=== PATIENT | female | born 1960 | race Two or more races ===

== ENCOUNTER 2019-05-24 17:40 | Emergency (ER) | payer BC ==
--- NOTE | 2019-05-24 17:50 | ED ---
Complex/Multi-Sys Presentation - HPI Summary HPI Summary: This patient is a 59 year old female brought in by EMS presenting to [facility] with a chief complaint of flu-like symptoms since 3 hours ago. She reports nausea, vomiting, nasal congestion, dizziness, hand-cramping and chills. She denies fever, CP, difficulty breathing, diarrhea. She states it initially started as chills. She states she has not had much to eat today. She has no known Hx of cardiovascular disease. She states she was admitted a couple years ago for the hand-cramping and similar symptoms and they did not figure out what was wrong. - History Of Current Complaint Time Seen by Provider: 05/24/19 17:44 Hx Obtained From: Patient Onset/Duration: Lasting Days Associated Signs And Symptoms: Positive: Dizziness, Nausea, Vomiting. Negative : SOB, Diarrhea - Allergies/Home Medications Allergies/Adverse Reactions: Allergies Allergy/AdvReac Type Severity Reaction Status Date / Time No Known Allergies Allergy Verified 05/24/19 17:55 Home Medications: Home Medications Metoprolol Succinate XL TAB* [Toprol XL TAB*] 50 mg PO DAILY 05/24/19 [History Confirmed 05/24/19] hydroCHLOROthiazide [Hydrochlorothiazide] 12.5 mg PO DAILY 05/24/19 [History Confirmed 05/24/19] PMH/Surg Hx/FS Hx/Imm Hx Endocrine/Hematology History: Denies: Hx Diabetes, Hx Thyroid Disease Cardiovascular History: Denies: Hx Hypertension Respiratory History: Denies: Hx Asthma, Hx Chronic Obstructive Pulmonary Disease (COPD) GI History: Denies: Hx Ulcer - Surgical History Surgery Procedure, Year, and Place: CYST REMOVAL/BUTTOCKS - Immunization History Date of Tetanus Vaccine: Unknown Date of Influenza Vaccine: Unknown Infectious Disease History: Denies: Hx Clostridium Difficile, Hx Hepatitis, Hx Human Immunodeficiency Virus (HIV), Hx of Known/Suspected MRSA, Hx Shingles, Hx Tuberculosis - Family History Known Family History: Negative: Respiratory Disease - Social History Alcohol Use: None Substance Use Type: Reports: None Smoking Status (MU): Never Smoked Tobacco Review of Systems Positive: Chills. Negative: Fever Positive: Nasal Discharge Negative: Chest Pain Negative: Shortness Of Breath Positive: Vomiting, Nausea. Negative: Diarrhea Positive: Other - Hand-cramping Neurological: Other - Dizziness All Other Systems Reviewed And Are Negative: Yes Physical Exam - Summary Physical Exam Summary: Constitutional: Well-developed, Well-nourished, Alert. (-) Distressed Skin: Warm, Dry HENT: Normocephalic; Atraumatic. Nystagmus. Eyes: Conjunctiva normal Neck: Musculoskeletal ROM normal neck. (-) JVD, (-) Stridor, (-) Tracheal deviation Cardio: Rhythm regular, rate normal, Heart sounds normal; Intact distal pulses; Radial pulses are 2+ and symmetric. (-) Murmur Pulmonary/Chest wall: Effort normal. (-) Respiratory distress, (-) Wheezes, (-) Rales Abd: Soft, (-) tenderness, (-) Distension, (-) Guarding, (-) Rebound Musculoskeletal: (-) Edema. Bilateral carpal spasms. Lymph: (-) Cervical adenopathy Neuro: Alert, Oriented x3 Psych: Mood and affect Normal Triage Information Reviewed: Yes Vital Signs On Initial Exam: Temp Pulse Resp BP Pulse Ox 97.4 F 88 28 216/96 94 05/24/19 17:45 05/24/19 17:45 05/24/19 17:45 05/24/19 17:45 05/24/19 17:45 Vital Signs Reviewed: Yes Procedures - Sedation Patient Received Moderate/Deep Sedation with Procedure: No Diagnostics - Laboratory Result Diagrams: 05/24/19 17:48 05/24/19 17:48 Lab Statement: Any lab studies that have been ordered have been reviewed, and results considered in the medical decision making process. - EKG 1810 Cardiac Rate: NL - 87 BPM EKG Rhythm: Sinus Rhythm Summary of EKG Findings: No ischemic changes. Dr. Bonds has reviewed and interpreted this EKG. Complex Multi-Symp Course/Dx Course Of Treatment: This patient is a 59 year old female brought in by EMS presenting to [facility] with a chief complaint of flu-like symptoms. Physical exams reveals Bilateral carpal spasms. Labs reveal RBC 4.90 H, Sodium 133 L, Chlroide 93 L, Anion Gap 17 H, Glucose 193 H, Magnesium 1.8 L, Ur Specific [place] 1.006 L, Urine Ketones 1+A, Urine Glucose 1+ A. Plan for discharge was discussed with the patient and she was agreeable with this plan. - Diagnoses Provider Diagnoses: Dizziness, Hypertension, Hand or foot spasms Discharge ED - Sign-Out/Discharge Documenting (check all that apply): Patient Departure - Discharge - Discharge Plan Condition: Stable Disposition: HOME Patient Education Materials: Hypertension (ED) Referrals: Jonathan Werner MD [Primary Care Provider] - 2 Days Additional Instructions: Return to ED with new or worsening symptoms. Follow up with your PCP on Sunday. - Billing Disposition and Condition Condition: STABLE Disposition: Home - Attestation Statements Document Initiated by Scribe: Yes Documenting Scribe: Aden Alex Provider For Whom Belen is Documenting (Include Credential): Steve Bonds DO Scribracheal Attestation: Aden Barrett scribed for Steve Bonds DO on 05/24/19 at 2228. Scribe Documentation Reviewed: Yes Provider Attestation: The documentation as recorded by the Aden gilbert accurately reflects the service I personally performed and the decisions made by , Steve Bonds DO Status of Scribe Document: Viewed
[2019-05-24] MEDS ORDERED: NS 0.9% 1000 ML** 1,000 ML IV ONE (17:54)
[2019-05-24] MEDS ORDERED: Ondansetron INJ* 2 MG/ML VIAL IV ONE (17:54)
[2019-05-24 18:27] LABS: ABS Lymphocytes 3.1 10^3/ul (1.0-4.8); ABS Monocytes 0.5 10^3/ul (0-0.8); ABS Neutrophils 5.3 10^3/ul (1.5-7.7); Eosinophil % 0.5 %; Hematocrit 45 % (35-47); Hemoglobin 15.1 g/dL (12.0-16.0); Lymphocyte % 34.4 %; Mean Corpuscular HGB Conc 33 g/dL (31-36); Mean Corpuscular Hemoglobin 31 pg (27-31); Mean Corpuscular Volume 92 fL (80-97); Mean Platelet Volume 8.4 fL (7.4-10.4); Nucleated Red Blood Cells % 0.2; Platelet Count 337 10^3/uL (150-450); Red Cell Distribution Width 13 % (10-15)
[2019-05-24 18:48] LABS: Albumin 4.4 g/dL (3.2-5.2); Albumin/Globulin Ratio 1.3 (1-3); BUN/Creatinine Ratio 18.8 (8-20); Calcium 9.5 mg/dL (8.6-10.3); EGFR African American 104.7 (>60); EGFR Non-African American 86.5 (>60); Globulin 3.3 g/dL (2-4); Magnesium 1.8 mg/dL (1.9-2.7); Potassium 3.6 mmol/L (3.5-5.0); Total Bilirubin 0.5 mg/dL (0.2-1.0); Total Protein 7.7 g/dL (6.4-8.9)
[2019-05-24] MEDS ORDERED: Magnesium Sulfate 1 GM IV* 1 GM/100 ML BAG IV ONE (18:55)
[2019-05-24 19:17] LABS: Urine Appearance Clear; Urine Bilirubin Negative (Negative); Urine Blood Negative (Negative); Urine Color Colorless; Urine Glucose 1+(50 mg/dL) (Negative); Urine Ketones 1+ (Negative); Urine Nitrite Negative (Negative); Urine Protein Negative (Negative); Urine Specific Gravity 1.006 (1.010-1.030); Urine Urobilinogen Negative (Negative)
[2019-05-24] MEDS ORDERED: Meclizine TAB* 12.5 MG PO ONE (19:24)
[2019-05-24 19:26] LABS: Influenza A Molecular Negative (Negative); Influenza B Molecular Negative (Negative)
[2019-05-24 21:02] VITALS: BP 167/89
== END 2019-05-24 21:01 | disposition home or self-care (01) ==
LOC: ED 17:40
DX: R42 Dizziness and giddiness (principal); I10 Essential (primary) hypertension; M62.838 Other muscle spasm; Z79.899 Other long term (current) drug therapy
CPT/HCPCS: 36415; 80053; 81003; 82140; 83735; 84484; 85025; 93005; 96361; 96365; 96375; 99283; A9270-GY; J2405; J3475